=== PATIENT | female | born 1970 | race Two or more races ===

== ENCOUNTER 2019-02-07 00:16 | Emergency (ER) | payer OTHER ==
[~2019-02-07] VITALS: Ht 162.6 cm; Wt 72.6 kg
[~2019-02-07 00:16] MED LIST: COZAAR50 MG PO; INTEGRA F CAPS1 EACH PO; PRINIVIL20 MG; ULTRACET PO; XARELTO10 MG PO
== END 2019-02-07 13:41 | disposition home or self-care (01) ==
LOC: ER 00:16
DX: N83.292 Other ovarian cyst, left side (principal); M54.89 Other dorsalgia

== ENCOUNTER → 2020-04-15 | Outpatient (CLI) | payer OTHER | END | disposition home or self-care (01) | LOC: OFIC 805 15:00 | PROVIDERS: ATTEND Otolaryngology | DX: L30.8 Other specified dermatitis (principal); H91.8X2 Other specified hearing loss, left ear ==

== ENCOUNTER 2020-07-15 08:01 | Outpatient (CLI) | payer OTHER | END 2020-07-15 08:12 | disposition home or self-care (01) | LOC: TOM 08:01 | PROVIDERS: ATTEND Internal Medicine Gastroenterology | DX: K76.0 Fatty (change of) liver, not elsewhere classified (principal); K57.90 Diverticulosis of intestine, part unspecified, without perforation or abscess without bleeding; K42.9 Umbilical hernia without obstruction or gangrene; R10.12 Left upper quadrant pain; R10.32 Left lower quadrant pain; Q61.00 Congenital renal cyst, unspecified ==

== ENCOUNTER 2024-11-20 00:40 | Inpatient (IN) | payer OTHER ==
[~2024-11-20] VITALS: Ht 162.6 cm; Wt 81.6 kg
[2024-11-20] MEDS ORDERED: LOSARTAN POTASS50 MG (01:03)
[2024-11-20] MEDS ORDERED: CHILDREN'S ASPI81 MG (01:03)
[2024-11-20] MEDS ORDERED: ATORVASTATIN CA20 MG (01:04)
[2024-11-20] MEDS ORDERED: COZAAR50 MG (01:05)
[2024-11-20] MEDS ORDERED: CARVEDILOL3.125 M1 (01:08)
--- NOTE | 2024-11-20 01:15 | NUR ---
PTE ALERTA Y ORIENTYADO X3 REFIERE TENER LA PRESION DARRYN DESDE HACE 1 SEMANA, SE TASHA SV MAS SE UBICA.
[2024-11-20] MEDS ORDERED: NIFEDIPINE 10 MG CAPSULE PO STA (04:16)
--- NOTE | 2024-11-20 04:16 | NUR ---
SE REALIZA LAB Y SE ADMINISTRA TX ARMINDA ORDEN MEDICA BAJO MEDIDAS ASEPTICAS. SE ORIENTA PTE QUIEN REFIERE ENTENDER Y ACEPTAR
[2024-11-20] MEDS ORDERED: NITROGLYCERIN 0.4 MG TAB.SUBL SL STA (07:59)
--- NOTE | 2024-11-20 08:00 | NUR ---
SE RECIBE A PACIENTE ALERTA Y ORIENTADA X3 EN AREA DE CRITICO, SE CONECTA A MONITOR CARDIACO Y OXIMETRIA CONTINUA. SE EDUCA A PACIENTE SOBRE PROCESO DE CANALIZACION, MUESTRAS Y ADMINISTRACION DE MEDICAMENTOS, REFIERE ENTENDER. SE EJECUTAN ORDENES BAJO MEDIDAS ASEPTICAS. PACIENTE SE MANTIENE EN CAMA A NIVEL DE PISO JUNTO CON BARRANDAS ELEVADAS.
[2024-11-20] MEDS ORDERED: NITROGLYCERIN 0.4 MG/HR PATCH.TD24 TD STA (08:06)
[2024-11-20 08:45] LABS: BASO % 1.3 % (0.1-1.2); EOS # 0.25 (0.04-0.54); EOS % 3.5 % (0.7-7.0); LYMPH # 1.74 (1.18-3.74); LYMPH % 24.7 % (19.3-53.1); MEAN PLATELET VOLUME 9.60 fl (9.4-12.4); MONO # 0.53 (0.24-0.82); MONO % 7.5 % (4.7-12.5); NEUT # 4.43 (1.56-6.13); NEUT % 62.9 % (34.0-71.1); RED CELL DISTRIBUTION WIDTH 11.9 % (11.6-14.4)
--- NOTE | 2024-11-20 09:00 | NUR ---
SE REALIZA EKG Y SE PRESENTA A DR. REYNOLDS.
[2024-11-20 09:25] LABS: INR 0.98
[2024-11-20 09:51] LABS: ALT/SGPT 154.0 U/L (12-78); AST/SGOT 62.0 U/L (15-37); BILIRUBIN TOTAL 0.53 mg/dL (0.3-1.2); BUN CREA RATIO 19.0 (7.0-25.0); CREATININE SERUM 0.57 mg/dL (0.55-1.02); GFR 110.53; GLOBULINA 3.9 G/DL (2.4-3.5); GLUCOSE FASTING 111.0 mg/dL (65-100); OSMOLALITY SERUM 283.0 MOSM/KG (275-295)
[2024-11-20] MEDS ORDERED: ACETAMINOPHEN 500 MG GEL..CAP PO STA (10:36)
[2024-11-20] MEDS ORDERED: KETOROLAC TROMETHAMINE 30 MG VIAL IV ONE (13:15)
[2024-11-20] MEDS ORDERED: SODIUM CHLORIDE 0.45 % 1,000 ML IV SCH (15:15)
[2024-11-20] MEDS ORDERED: LOSARTAN POTASSIUM 50 MG TABLET PO SCH (15:17)
[2024-11-20] MEDS ORDERED: CLOPIDOGREL BISULFATE 75 MG TABLET PO SCH (15:17)
[2024-11-20] MEDS ORDERED: ASPIRIN 81 MG TABLET.EC PO SCH (15:18)
[2024-11-20] MEDS ORDERED: ENALAPRILAT DIHYDRATE 1.25 MG/ML VIAL IV PRN (15:30)
[2024-11-20] MEDS ORDERED: ATORVASTATIN CALCIUM 40 MG TABLET PO SCH (17:00)
[2024-11-20] MEDS ORDERED: CARVEDILOL 3.125 MG TABLET PO SCH (17:00)
[2024-11-20 17:19] LABS: PHOSPHOKINASE CREATININE 67 U/L (26-192)
[2024-11-20 17:22] LABS: CKMB < 1.0 NG/ML (0.5-3.6)
[2024-11-20 17:26] VITALS: BP 133/70; O2SAT 99
[2024-11-20 20:49] VITALS: BP 91/54
[2024-11-20 21:21] VITALS: BP 145/84
[2024-11-20] MEDS ORDERED: TRAMADOL HCL 50 MG TABLET PO PRN (22:30)
[2024-11-20 22:40] VITALS: BP 127/68
[2024-11-20] MEDS ORDERED: ACETAMINOPHEN 500 MG GEL..CAP PO PRN (23:30)
[2024-11-21 02:27] VITALS: BP 126/73; O2SAT 98
[2024-11-21 06:18] LABS: BASO % 1.0 % (0.1-1.2); EOS # 0.30 (0.04-0.54); EOS % 3.9 % (0.7-7.0); LYMPH # 2.71 (1.18-3.74); LYMPH % 35.4 % (19.3-53.1); MEAN PLATELET VOLUME 10.40 fl (9.4-12.4); MONO # 0.74 (0.24-0.82); MONO % 9.7 % (4.7-12.5); NEUT # 3.81 (1.56-6.13); NEUT % 49.7 % (34.0-71.1); RED CELL DISTRIBUTION WIDTH 12.0 % (11.6-14.4)
[2024-11-21 07:02] LABS: ALT/SGPT 101.0 U/L (12-78); AST/SGOT 34.0 U/L (15-37); BILIRUBIN TOTAL 0.53 mg/dL (0.3-1.2); BUN CREA RATIO 29.0 (7.0-25.0); CREATININE SERUM 0.51 mg/dL (0.55-1.02); GFR 125.67; GLOBULINA 2.9 G/DL (2.4-3.5); GLUCOSE FASTING 77.0 mg/dL (65-100); OSMOLALITY SERUM 277.0 MOSM/KG (275-295); TSH 2.2 uIU/mL (0.358-3.74)
[2024-11-21 07:10] LABS: PHOSPHOKINASE CREATININE 57 U/L (26-192)
[2024-11-21 07:13] LABS: CKMB < 1.0 NG/ML (0.5-3.6)
[2024-11-21 08:38] VITALS: BP 145/86; O2SAT 98
[2024-11-21] MEDS ORDERED: ISOSORBIDE MONONITRATE 30 MG TABLET PO SCH (09:00)
[2024-11-21 14:49] LABS: PHOSPHOKINASE CREATININE 70 U/L (26-192)
[2024-11-21 14:51] LABS: CKMB < 1.0 NG/ML (0.5-3.6)
[2024-11-21 17:33] VITALS: BP 124/76
[2024-11-22 01:04] VITALS: BP 131/75; O2SAT 97
[2024-11-22 03:07] LABS: BASO % 0.9 % (0.1-1.2); EOS # 0.15 (0.04-0.54); EOS % 2.2 % (0.7-7.0); LYMPH # 1.42 (1.18-3.74); LYMPH % 21.0 % (19.3-53.1); MEAN PLATELET VOLUME 9.70 fl (9.4-12.4); MONO # 0.43 (0.24-0.82); MONO % 6.4 % (4.7-12.5); NEUT # 4.68 (1.56-6.13); NEUT % 69.2 % (34.0-71.1); RED CELL DISTRIBUTION WIDTH 11.9 % (11.6-14.4)
[2024-11-22 03:35] LABS: ALT/SGPT 89.0 U/L (12-78); AST/SGOT 25.0 U/L (15-37); BILIRUBIN TOTAL 0.75 mg/dL (0.3-1.2); BUN CREA RATIO 20.0 (7.0-25.0); CREATININE SERUM 0.55 mg/dL (0.55-1.02); GFR 115.18; GLOBULINA 3.1 G/DL (2.4-3.5); GLUCOSE FASTING 135.0 mg/dL (65-100); OSMOLALITY SERUM 283.0 MOSM/KG (275-295)
[2024-11-22 08:31] VITALS: BP 104/67; O2SAT 99
[2024-11-22 17:00] VITALS: BP 148/80; O2SAT 98
[2024-11-23 03:13] VITALS: BP 129/87; O2SAT 98
[2024-11-23] MEDS ORDERED: LOSARTAN POTASSIUM 50 MG,LOSARTAN POTASSIUM 25 MG PO SCH (09:00)
[2024-11-23 10:47] VITALS: BP 172/84
[2024-11-23 14:45] VITALS: BP 132/81
[2024-11-23 16:31] VITALS: BP 129/80; O2SAT 96
[2024-11-23] MEDS ORDERED: TRAZODONE HCL 50 MG TABLET PO SCH (21:00)
[2024-11-24] MEDS ORDERED: LOSARTAN POTASSIUM 100 MG TABLET PO SCH (09:00)
== END 2024-11-23 17:33 | disposition home or self-care (01) | DRG 282 ==
LOC: ER 00:40 → SEC-K 15:38 → MEDI 15:38
PROVIDERS: General Practice; ADMIT Internal Medicine; ATTEND Internal Medicine
PROC: B246ZZZ Ultrasonography of Right and Left Heart (ICD-10-PCS; principal; 2024-11-20)
PROC: BW40ZZZ Ultrasonography of Abdomen (ICD-10-PCS; 2024-11-20)
PROC: 4A12X4Z Monitoring of Cardiac Electrical Activity, External Approach (ICD-10-PCS; 2024-11-20)
DX: I21.4 Non-ST elevation (NSTEMI) myocardial infarction (principal); I10 Essential (primary) hypertension; R74.8 Abnormal levels of other serum enzymes